=== PATIENT | male | born 1985 | race Caucasian/White ===

== ENCOUNTER 2024-09-03 16:59 | Observation (INO) | payer OTHER ==
[~2024-09-03] VITALS: Ht 188 cm; Wt 74.8 kg
[2024-09-03] MEDS ORDERED: SEVOFLURANE 250 ML BTL INH ONE (17:19)
[2024-09-03] MEDS ORDERED: ondansetron HCL 4 MG/2 ML VIAL IV ONE (18:15)
[2024-09-03] MEDS ORDERED: GLUCAGON,HUMAN RECOMBINANT 1 MG/ML VIAL IV ONE ×2 (18:15)
[2024-09-03] MEDS ORDERED: SODIUM CHLORIDE 0.9% 1,000 ML IV SCH (18:15)
[2024-09-03] MEDS ORDERED: LACTATED RINGER'S 1,000 ML IV SCH ×2 (19:15→20:00)
[2024-09-03] MEDS ORDERED: fentaNYL citrate 100 MCG/2 ML VIAL ONE (20:18)
[2024-09-03] MEDS ORDERED: LIDOCAINE HCL 4% 50 ML BTL ONE (20:18)
[2024-09-03] MEDS ORDERED: LIDOCAINE HCL 2% 5 ML SDV ONE ×2 (20:19→20:20)
[2024-09-03] MEDS ORDERED: propofoL 200 MG/20 ML VIAL ONE (20:19)
[2024-09-03] MEDS ORDERED: DEXAMETHASONE SOD PHOS 4 MG/ML VIAL ONE (20:20)
[2024-09-03] MEDS ORDERED: ondansetron HCL 4 MG/2 ML VIAL ONE (20:20)
[2024-09-03] MEDS ORDERED: SUCCINYLCHOLINE IN 0.9% NACL 200 MG/10 ML SYRINGE ONE (20:24)
[2024-09-03] MEDS ORDERED: ROCURONIUM BROMIDE 50 MG/5 ML SYR ONE (20:24)
[2024-09-03] MEDS ORDERED: ePHEDrine sulfate 50 MG/ML AMP ONE (20:40)
[2024-09-03] MEDS ORDERED: SUGAMMADEX SODIUM 200 MG/2 ML ML ONE (20:45)
--- NOTE | 2024-09-03 21:07 | NUR ---
09/03/242106 Delia Figueredo 2100-PT ARRIVES TO PACU VIA STRETCHER, PT ALERT BUT DROWSY. PT DENIES PAIN OR NAUSEA, VSS ON RA, RR EVEN AND UNLABORED.
[2024-09-03 21:28] VITALS: BP 112/62
--- NOTE | 2024-09-03 21:43 | NUR ---
2124 - pt admitted to room 124 from PACU. alert and oriented, no c/o pain, c/o slight throat soreness. On room air, clear lungs, regular heart rate and rhythm. abd soft, MARTIN, LBM today. SL LFA patent. tolerating sips of clear fluids. aware of diet restrictions for the next 2 days. no hot liquids/foot, soft texture, slowly increased to regular soft diet. Pt and female significant other stated understanding. Oriented to room, call light at hands reach.
[2024-09-03 21:46] VITALS: BP 112/62
[2024-09-03 22:43] VITALS: BP 100/60
--- NOTE | 2024-09-03 23:03 | NUR ---
PT TOLERATED PO FLUIDS WELL, VOIDED, SIGNED DC PAPERWORK, ALERT AND ORIENTED. IV LW DC'D TIP INTACT. ALL DC INSTRUCTINS GIVEN VERBALLY AND WRITTEN STATED UNDERSTANDING. DC AMBULATORY AT 2300 WITH ALL BELONGINGS ACOMPANIED BY
--- NOTE | 2024-09-04 12:41 | OR ---
[facility] [address], [place] [address] Signed DATE OF OPERATION: 09/03/2024 SURGEON: Valentin Jimenez MD PREOPERATIVE DIAGNOSES: 1. Recurrent food impaction, esophagus. 2. Distant history of caustic injection at age [id number]. 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 PROCEDURES: 1. Upper endoscopy with extraction, morcellation and clearance of esophagus by endoscopic method. 2. Biopsy of stomach and esophagus. ANESTHESIA: General endotracheal, Neil Orellana CRNA. INDICATIONS: This 39-year-old white man is originally from [place], most recently in [place] and now passing through [place] to live with his girlfriend in this area. He has been here for only two weeks. He presented to the emergency room was evaluated by Dr. Turner with perception of obstructed esophagus related to a hot dog he ate earlier in the day. The patient has had esophageal obstruction problems in the past requiring endoscopic evaluation. Most notably he suffered caustic injection at age 1-1/2 swallowing "oven janitor and cleaner." This necessitated endoscopic evaluation and resulting in perforation he says requiring operative intervention. The patient has had dysphagia to other objects in the past including and other food substances. An attempted glucagon administration was unsuccessful this evening. On that basis, I have recommended upper endoscopy and clearance of the esophagus by endoscopic methods. We are mindful that caustic injection causes a markedly increased risk of malignant degeneration over time and given his age of 39 years, he is in a zone in which malignant degeneration could be a possibility. The risk of bleeding, infection, and perforation related to upper endoscopy was reviewed with him and his girlfriend. They understand and wished to proceed. FINDINGS: Indeed, there was obstruction of the esophagus with a portion of hot dog. This was Electronically Signed By: VALENTIN JIMENEZ MD 09/04/24 1241 PATIENT NAME: KAVEH EDMOND OPERATIVE REPORT DATE OF : 87 REPORT #: [id number] PHYSICIAN: VALENTIN JIMENEZ MD PCP: NO PRIMARY CARE PHYSICIAN REPORT IS CONFIDENTIAL AND NOT TO BE RELEASED WITHOUT AUTHORIZATION [facility] [address], [place] [address] Signed removed with combination of methods ultimately requiring morcellation of the meat and passing it forward through into the stomach. Some of it was extracted per os using a Rodriguez-Net. Complete clearance of the esophagus was accomplished. The offending obstruction was at approximately 28 cm from the incisors related to a somewhat dysmorphic stricture, which was not excessively narrow and did not have malignant features. There was no evidence of distal esophagitis or Quan's epithelium. The stomach and duodenum were normal. Retroflexed view showed a reasonable flap valve. It is my believe that these caustic ingestion and resultant low-grade stricture has been responsible for his obstruction today. There is no evidence of the eosinophilic esophagitis, however, biopsies were taken to assure that. DESCRIPTION OF PROCEDURE: The patient was brought to the endoscopy suite and given a general endotracheal anesthetic. He remained in the supine position. A bite block was placed. An Olympus video upper endoscope was passed in the hypopharynx. Good position of the endotracheal tube in relation to the vocal cords was noted. The scope was advanced to the esophagus. After passage down the esophagus, a pending obstructive food impaction was noted. This indeed was a portion of the hot dog, indeed the end portion. A few small pieces were associated with it. A Rodriguez-Net was used to extract portions of the hot dog. However, most of the time, though the foreign body was mobile, it could not be extracted beyond approximately 18 cm extensively where the endotracheal balloon was. It could not be passed antegrade either. On that basis, a snare was used to morcellate the impacted remaining hot dog. This allowed for a passage of the scope beyond the area of obstruction and the distal esophagus appeared normal without sign of problem. The morcellator hot dog pieces were then pushed forward into the stomach and the stomach examined fully. The pylorus was normal as was the duodenum. Stomach was normal. Retroflexed view showed a good flap valve overall. The scope was withdrawn to the distal esophagus and the distal esophageal mucosa was entirely normal, this was biopsied. Further withdrawal of scope identified the offending stricture at approximately 28 cm and although not tight and dense was clearly the site of the obstruction. No doubt this corresponded to the caustic stricture, he suffered in childhood. Biopsies were taken of the strictured area. The scope was further withdrawn and more proximal esophagus appeared normal. Irrigation was undertaken fully clearing the esophagus of any debris. The scope was ultimately removed and the patient was subsequently extubated and taken to the recovery room in good condition. CONCLUDING DIAGNOSES: Food impaction of the esophagus at approximately 28 cm related to caustic ingestion in childhood. No clear evidence of malignancy of the stricture at this time. No other findings that would account for dysphagia and food impaction. Electronically Signed By: VALENTIN JIMENEZ MD 09/04/24 1241 PATIENT NAME: KAVEH EDMOND OPERATIVE REPORT DATE OF : 87 REPORT #: [id number] PHYSICIAN: VALENTIN JIMENEZ MD PCP: NO PRIMARY CARE PHYSICIAN REPORT IS CONFIDENTIAL AND NOT TO BE RELEASED WITHOUT AUTHORIZATION [facility] [address] [facility] [place] [place] [place] [address] Signed It will be emphasized with the patient that he is between 1000 and 3000 times more likely to develop esophageal cancer as a result of his caustic ingestion with a lifetime risk of between 10% and 20%. On that basis current standards would recommend upper endoscopy be performed every three years now that he is nearly 40 years since his original problem. It goes without saying that he should chew his food well before swallowing, which he is certainly aware of already. MD LISANDRA Combs/MODL /[id number] cc: Erasmo Turner MD Copies: ERASMO TURNER MD ~ Electronically Signed By: VALENTIN JIMENEZ MD 09/04/24 1241 PATIENT NAME: KAVEH EDMOND OPERATIVE REPORT DATE OF : 87 REPORT #: [id number] PHYSICIAN: VALENTIN JIMENEZ MD PCP: NO PRIMARY CARE PHYSICIAN REPORT IS CONFIDENTIAL AND NOT TO BE RELEASED WITHOUT AUTHORIZATION
--- NOTE | 2024-09-04 12:41 | CONS ---
[facility] [address] [place], [place] [address] Signed DATE OF CONSULTATION: 09/03/2024 REQUESTING PHYSICIAN: Dr. Turner. PROBLEM: Persistent food impaction (hot dog). HISTORY OF PRESENT ILLNESS: This 39-year-old white man is accompanied by his girlfriend. The patient has recently been in [place], but generally lives in [place]. He is here from the evaluation in the Emergency Room for concern of having a portion of hot dog stuck in his esophagus. The patient had two hot dogs prior to his presentation to the Emergency Room where he was evaluated by Dr. Erasmo Turner. He has a sensation of incomplete obstruction of the esophagus. It is notable that the patient injured his esophagus at age 1-1/2 by swallowing "oven parts cleaner." Endoscopy was performed he says at that time in [place] and perforation occurred for which operative intervention was required. He has had obstruction of the esophagus with food and in the past. Previously use of hot tea and/or carbonated liquids has been beneficial to him. This was ineffective today. His presentation to the emergency room included evaluation by Dr. Turner. A chest x-ray was performed showing no acute problem, but blunted bilateral costophrenic angles due to increased inspiration and possible trace pleural effusion. An attempt was made at ingestion of an esophageal relaxant (glucagon), but clinically there is no improvement. The patient has not had copious hypersalivation, but has inability to swallow small amounts of liquid, as has been attempted. PAST MEDICAL HISTORY: Notable primarily for psychiatric issues including depression and anxiety. He denies any drug or alcohol use. SOCIAL HISTORY: He is essentially transient to this area and is accompanied by a girlfriend who lives here. He is uncertain if he will continue to live here. REVIEW OF SYSTEMS: He denies any actual chest pain. Has no shortness of breath. Denies exertional chest pain generally speaking. PHYSICAL EXAMINATION: GENERAL: A 39-year-old white man who looks to be slightly anxious. BMI is 21.2. HEENT: Trachea is midline. I detect no crepitus. He has no hoarseness. Electronically Signed By: VALENTIN JIMEENZ MD 09/04/24 1241 PATIENT NAME: KAVEH EDMOND CONSULTATION DATE OF : 87 REPORT #: [id number] PHYSICIAN: VALENTIN JIMENEZ MD PCP: NO PRIMARY CARE PHYSICIAN REPORT IS CONFIDENTIAL AND NOT TO BE RELEASED WITHOUT AUTHORIZATION [facility] [address] [place], [place] [address] Signed CHEST: Shows normal respiratory excursion. ABDOMEN: Nondistended. EXTREMITIES: Show no clubbing, cyanosis, or edema. Temperature is 98.4, pulse 64, respirations 20, blood pressure 115/75. IMAGING: Chest x-ray was examined and official interpretation includes no clear evidence of foreign body demonstrated, but blunted bilateral costophrenic angles. He may have trace bilateral pleural effusion. ASSESSMENT AND PLAN: The patient has impacted foreign body (hot dog), which has failed to pass despite a trial of time and administration of glucagon. He has had this issue before. The patients who have had caustic ingestion causing stricture and other esophageal dysmotility are at increased risk of malignant transformation over time and upper endoscopy at this point to relieve the obstruction would be definitely appropriate as well as possible biopsy to assess for neoplastic disease. The risk of bleeding, infection, perforation, and other unforeseen complications was reviewed with him in detail. He understands and wishes to proceed. We will plan to do this under general anesthesia to protect his airway given the obstructing foreign body itself. MD LISANDRA Combs/LYNNEL /[id number] cc: Erasmo Turner MD Copies: ERASMO TURNER MD ~ Electronically Signed By: VALENTIN JIMENEZ MD 09/04/24 1241 PATIENT NAME: KAVEH EDMOND CONSULTATION DATE OF : 87 REPORT #: [id number] PHYSICIAN: VALENTIN JIMENEZ MD PCP: NO PRIMARY CARE PHYSICIAN REPORT IS CONFIDENTIAL AND NOT TO BE RELEASED WITHOUT AUTHORIZATION
--- NOTE | 2024-09-06 09:09 | PATH ---
[facility] [address] [place], [place] [address] Signed SPECIMEN(S): A LOWER ESOPHAGEAL BIOPSY SPECIMEN(S): B ESOPHAGEAL BIOPSY STRICTURE AT 28 CM SPECIMEN(S): C MIDDLE ESOPHAGEAL BIOPSY SPECIMEN SOURCE: A. LOWER ESOPHAGEAL BIOPSY B. ESOPHAGEAL BIOPSY STRICTURE AT 28 CM C. MIDDLE ESOPHAGEAL BIOPSY CLINICAL HISTORY: Food impaction. Esophageal stricture at 28 cm. FINAL PATHOLOGIC DIAGNOSIS: A. Esophagus, lower, biopsy: - Esophageal squamous mucosa with no significant pathologic changes B. Esophagus, stricture at 28 cm, biopsy: - Esophageal squamous mucosa with no significant pathologic changes C. Esophagus, middle, biopsy: - Esophageal squamous mucosa with no significant pathologic changes BRP MICROSCOPIC EXAMINATION: Histologic sections of all submitted blocks are examined by light microscopy. These findings, together with the gross examination, support the pathologic diagnosis. GROSS DESCRIPTION: A. The specimen, labeled and designated "Young, lower esophagus biopsy," is received in formalin and consists of three marsh soft tissue fragments, ranging from 0.1-0.3 cm. Entirely submitted in (A1). B. The specimen, labeled and designated "Young, esophagus biopsy stricture at 28 cm," is received in formalin and consists of three marsh soft tissue fragments, ranging from 0.2 to 0.3 cm. Entirely submitted in (B1). C. The specimen, labeled and designated "Young, middle esophagus biopsy," is received in formalin and consists of three marsh soft tissue fragments, ranging from 0.1 to 0.2 cm. Entirely submitted in (C1). JS (under the direct supervision of a pathologist) The Gross Description was prepared using a voice recognition system. The report was reviewed for accuracy; however, sound-alike word errors, addition and/or PATIENT NAME: KAVEH EDMOND PATHOLOGY DATE OF : 87 REPORT #: [id number] PHYSICIAN: [facility] PCP: NO PRIMARY CARE PHYSICIAN REPORT IS CONFIDENTIAL AND NOT TO BE RELEASED WITHOUT AUTHORIZATION [facility] [address] [place], [place] [address] Signed deletions may occur. If there is any question about this report, please contact Client Services. ADDITIONAL NOTES: Immunohistochemical and/or in situ hybridization studies if performed in this case included appropriate positive controls that reacted as expected. This test was developed and its performance characteristics determined by [facility]. It has not been cleared or approved by the U.S. Food and Drug Administration. The FDA has determined that such clearance or approval is not necessary. This test is used for clinical purposes. It should not be regarded as investigational or for research. [facility] is certified under the Clinical Laboratory Improvement Amendments of 1988 (CLIA) as qualified to perform high complexity clinical laboratory testing. PERFORMING LABORATORY: Technical component was performed by [facility], [address] [place] [id number] (CLIA# [id number]). Professional interpretation was performed by [facility], [address] [place] [address] (CLIA#: [id number]). Diagnostician: Jacob Gallagher MD Pathologist Electronically Signed 09/06/2024 Copies: ~ PATIENT NAME: KAVEH EDMOND PATHOLOGY DATE OF : 87 REPORT #: [id number] PHYSICIAN: [facility] PCP: NO PRIMARY CARE PHYSICIAN REPORT IS CONFIDENTIAL AND NOT TO BE RELEASED WITHOUT AUTHORIZATION
== END 2024-09-03 23:00 | disposition home or self-care (01) ==
LOC: ED 16:59 → MS 20:00
PROVIDERS: ADMIT Surgery; ATTEND Surgery
PROC: 0DB58ZX Excision of Esophagus, Via Natural or Artificial Opening Endoscopic, Diagnostic (ICD-10-PCS; 2024-09-03)
PROC: 0DB68ZX Excision of Stomach, Via Natural or Artificial Opening Endoscopic, Diagnostic (ICD-10-PCS; 2024-09-03)
PROC: 0DC58ZZ Extirpation of Matter from Esophagus, Via Natural or Artificial Opening Endoscopic (ICD-10-PCS; principal; 2024-09-03 20:11)
DX: T18.128A Food in esophagus causing other injury, initial encounter (principal); K22.2 Esophageal obstruction
CPT/HCPCS: 00813; 71045; J0330; J1100; J1610; J2003; J2405; J2704; J3010; J3490; J7121